=== PATIENT | male | born 1960 | race Caucasian/White ===

== ENCOUNTER 2017-04-04 22:20 | Emergency (ER) | payer OTHER ==
[~2017-04-04] VITALS: Ht 180.3 cm; Wt 102.1 kg
--- NOTE | 2017-04-04 22:31 | ED CARDIAC/CP/PALPITATIONS ---
History of Present Illness General Chief Complaint: Chest Pain Stated Complaint: CHEST PAIN Source: patient Exam Limitations: no limitations Vital Signs & Intake/Output Vital Signs & Intake/Output Vital Signs Date Time Temp Pulse Resp B/P B/P Pulse O2 O2 Flow FiO2 Mean Ox Delivery Rate 04/04 2305 80 18 97/64 100 Nasal 2.0L Cannula 04/04 2300 52 68/37 04/04 2250 97.2 88 18 171/103 100 Nasal 2.0L Cannula 04/04 2222 97.2 90 18 180/103 98 Room Air ED Intake and Output 04/05 0000 04/04 1200 Intake Total Output Total Balance Patient 225 lb Weight Weight Reported by Patient Measurement Method Allergies Coded Allergies: corn syrup (UNKNOWN 04/04/17) Triage Nurses Notes Reviewed? yes Onset: Abrupt Duration: hour(s): Timing: single episode today Quality/Severity: moderate Location: central Radiation: no radiation Activities at Onset: none Prior Chest Pain/Card Workup: no prior chest pain Aspirin Today: 325 mg x 1, provided by ED HPI: 56-year-old gentleman, history of diabetes, presents with chest pain radiating down his left arm. He states that the pain began approximately 1 hour prior to presentation. He states that at its worse it was a 5 out of 10. Upon arrival to the ED he states his discomfort is 3 out of 10. He states, "actually my chest pain is better but I still feel to my left forearm." Mild diaphoresis and slight shortness of breath. He has no fever chills cough wheezing lower extremity swelling nausea vomiting diarrhea. He is otherwise well. Past History Travel History Traveled to [place] past 21 day No Medical History Any Pertinent Medical History? see below for history Endocrine: diabetes Surgical History Surgical History: none Family History Hx Contributory? No Review of Systems Review of Systems Constitutional: Reports: no symptoms. EENTM: Reports: no symptoms. Respiratory: Reports: no symptoms. Cardiovascular: Reports: no symptoms. GI: Reports: no symptoms. Genitourinary: Reports: no symptoms. Musculoskeletal: Reports: no symptoms. Skin: Reports: no symptoms. Neurological/Psychological: Reports: no symptoms. Hematologic/Endocrine: Reports: no symptoms. Immunologic/Allergic: Reports: no symptoms. All Other Systems: Reviewed and Negative Physical Exam Physical Exam General Appearance: well developed/nourished, mild distress Head: atraumatic, normal appearance Eyes: Bilateral: normal appearance. Ears, Nose, Throat: normal pharynx, normal ENT inspection Neck: normal inspection, supple, full range of motion Respiratory: normal breath sounds, chest non-tender, no respiratory distress Cardiovascular: regular rate/rhythm Gastrointestinal: normal bowel sounds, soft, non-tender Back: normal inspection, normal range of motion Extremities: normal inspection Neurologic/Psych: no motor/sensory deficits, awake, alert, oriented x 3 Skin: intact, normal color, warm/dry Core Measures ACS in differential dx? No Severe Sepsis Present: No Septic Shock Present: No Progress Differential Diagnosis: AMI, unstable angina Plan of Care: Orders Procedure Date/time Status D-DIMER 04/04 2230 Complete TROPONIN LEVEL 04/04 2221 Complete COMPREHENSIVE METABOLIC PANEL 04/04 2221 Complete CBC WITHOUT DIFFERENTIAL 04/04 2221 Complete EKG 04/04 2221 Active Current Medications Sig/Manas Start time Last Medication Dose Stop Time Status Admin Sodium Chloride 1,000 ML BOLUS ONE 04/04 2315 AC 04/04 (Normal Saline 0.9%) 04/05 0014 2308 Laboratory Tests 04/04/17 2232: Anion Gap 12, Estimated GFR > 60, BUN/Creatinine Ratio 13.8, Glucose 117 H, Calcium 9.0, Total Bilirubin 0.6, AST 32, ALT 53, Alkaline Phosphatase 51, Troponin I 0.07, Total Protein 7.4, Albumin 4.3, Globulin 3.1, Albumin/Globulin Ratio 1.4, D-Dimer < 200, CBC w Diff NO MAN DIFF REQ, RBC 5.10, MCV 81.2, MCH 26.7 L, RDW 13.8, MPV 7.6, Gran % 78.6 H, Lymphocytes % 13.1 L, Monocytes % 6.3, Eosinophils % 1.1, Basophils % 0.9, Absolute Granulocytes 6.9 H, Absolute Lymphocytes 1.2, Absolute Monocytes 0.6, Absolute Eosinophils 0.1, Absolute Basophils 0.1, PUBS MCHC 32.9 L Diagnostic Imaging: Viewed by Me: Radiology Read. Discussed w/RAD: Radiology Read. CXR Impression: no acute abnormality, no infiltrates, normal size heart, normal mediastinum Initial ED EKG: st seg elevation in v1, v2, not inconsistent with anteroseptal ischemia Comments: PATIENT: NIYAH SEGOVIA PRESENT AGE: 56 PATIENT ACCOUNT NO: [id number] : 58 LOCATION: [facility] ORDERING PHYSICIAN: YESENIA WIGGINS MD SERVICE DATE: 04/04/17 EXAM TYPE: RAD - XRY-PORTABLE CHEST XRAY EXAMINATION: CHEST 1 VIEW CLINICAL INFORMATION: Chest pain. COMPARISON: None. TECHNIQUE: An AP view of the chest is provided. FINDINGS: The cardiac silhouette is not enlarged. The mediastinal and hilar contours are unremarkable. There are neither pleural effusions nor pneumothoraces. There are no consolidations. The osseous structures are unremarkable. IMPRESSION: No evidence for acute disease. DICTATED BY: ROSA PACHECO MD DATE/TIME DICTATED:04/04/172313 TREASURY DIRECTOR:SHEEBA DATE/TIME TRANSCRIBED:04/04/172313 CONFIDENTIAL, DO NOT COPY WITHOUT APPROPRIATE AUTHORIZATION. <Electronically signed in Other Vendor System> SIGNED BY: ROSA PACHECO MD 04/04/172317 Departure Departure Disposition: OTHER [facility] (ACUTE) Condition: Stable Clinical Impression Primary Impression: Myocardial infarction Departure Forms: Customer Survey General Discharge Information Comments 04/04/17, 22:39.... discussed with dr. sandro romo... pt consistent with acute AL... pt to be transferred. 04/04/17... 22:51... discussed with dr. jones, cardiology... who accepts patient for evaluation (pt's pmd is [facility]. pt requests [facility]) 04/04/17... 23:07... pt given one nitro.... discomfort is resolved... pt dropped bp... now improved after normal saline bolus 1 L. bblocker held due to low bp. Critical Care Note Critical Care Note Critical Care Time: 30-74 min
[2017-04-04 22:54] LABS: ABSOLUTE BASOPHIL COUNT 0.1 /CUMM (0.0-0.2); ABSOLUTE EOSINOPHIL COUNT 0.1 /CUMM (0.0-0.7); ABSOLUTE GRANULOCYTE CT 6.9 /CUMM (1.4-6.5); ABSOLUTE LYMPH COUNT 1.2 /CUMM (1.2-3.4); ABSOLUTE MONOCYTE COUNT 0.6 /CUMM (0.10-0.60); BASOPHIL % 0.9 % (0.0-2.0); EOSINOPHIL % 1.1 % (0-5); GRANULOCYTE % 78.6 % (42.2-75.2); HEMATOCRIT 41.5 % (42-52); MEAN CORPUSCULAR HGB 26.7 PG (27.0-31.0); MEAN CORPUSCULAR HGB CONC 32.9 G/DL (33.0-37.0); MEAN CORPUSCULAR VOLUME 81.2 FL (80.0-94.0); MEAN PLATELET VOLUME 7.6 FL (7.4-10.4); PLATELET COUNT 247 /CUMM (130-400); RBC DISTRIBUTION WIDTH 13.8 % (11.5-14.5); WHITE BLOOD CELL COUNT 8.8 /CUMM (4.8-10.8)
[2017-04-04 23:05] VITALS: BP 97/64
--- NOTE | 2017-04-04 23:18 | RADIOLOGY REPORT ---
EXAMINATION: CHEST 1 VIEW CLINICAL INFORMATION: Chest pain. COMPARISON: None. TECHNIQUE: An AP view of the chest is provided. FINDINGS: The cardiac silhouette is not enlarged. The mediastinal and hilar contours are unremarkable. There are neither pleural effusions nor pneumothoraces. There are no consolidations. The osseous structures are unremarkable. IMPRESSION: No evidence for acute disease.
== END 2017-04-04 23:27 | disposition short-term general hospital (02) ==
LOC: ERH 22:20
PROVIDERS: Physician Assistant Medical
DX: R07.9 Chest pain, unspecified (principal); I21.3 ST elevation (STEMI) myocardial infarction of unspecified site
CPT/HCPCS: 93005; 93010; 96374; 96375; 99291; J1644; J2405; J3490